=== PATIENT | female | born 1965 | race Two or more races ===

== ENCOUNTER 2024-11-27 13:00 | Outpatient (RCR) | payer MEDICAID, SELFPAY ==
--- NOTE | 2024-11-06 14:09 | PTNOTE_ITS ---
PT OP Initial Eval Patient Information Outpatient Physical Therapy Treatment Date: 11/06/24 Visit Reasons: Left lower leg injury Medical Diagnosis: [id number] Treatment Dx #1: L knee pain Start of Care: 11/06/24 Date of Onset: 05/2024 Smoking Status Smoking Status: Never smoker Initial Assessment Subjective: Pt is 59 yr old female who reports she slipped and fell at a grocery store on some water and the L knee hurts since then. Increased pain with prolonged walking >30 mins, getting OOB, squatting, stairs. The pain radiates from the knee up the lateral thigh. PMH: allergies Imaging: with provider Pt goal: to get rid of the knee pain to walk normal Objective: L knee AROM: Extension: full Flexion: 115 deg SLR: 55 deg Sayda's: positive Varus/valgus: positive gapping into both Trunk AROM: FB: 12 from floor with LBP TTP: L ITB high L hip abduction strength: 3-/5 Standing balance: poor with upper body movement when she moves the L LE after standing Assessment: Pt presents with L knee pain with most movements and special testing over the ITB. The L LE pain seems to be radiating from the knee up and not the low back down even though her back does hurt. Pt may benefit from skilled therapy to meet goals and has poor/fair rehab potential. Short Term and Custodial Goals 1. Ind with HEP 2. Decreased L ITB TTP from high to min 3. Improved ambulatory distance to at least 45 mins with min L knee pain Treatment Plan ? 1. Manual therapy ? 2. Therex ? 3. Modalities as indicated, moist heat, ice, estim Frequency and Duration: 1-2x a week for 3 trial visits then reassess. If improving continue up to 12 visits. Certification Dates: 11/06/24 to 02/05/25 Procedure Charges OP PT Eval Mod Complex 30 minutes: Yes
--- NOTE | 2024-11-13 16:20 | PT.ODAYNRPT ---
PT Outpatient Daily Note OP Daily Note Outpatient Physical Therapy Treatment Date: 11/13/24 Visit Reasons: Left lower leg injury Subjective: Same as time of evaluation Objective: See F/S for therex MHP: L knee x5' Assessment: Difficulty with partial body weight squatting on 35% body weight. Plan: Continue per POC Length of Time (minutes) of Treatment: 30 Minutes Procedure Charges Therapeutic Exercise 30 minutes: Yes
--- NOTE | 2024-11-20 13:50 | PT.ODAYNRPT ---
PT Outpatient Daily Note OP Daily Note Outpatient Physical Therapy Treatment Date: 11/20/24 Visit Reasons: Left lower leg injury Subjective: Pt c/o /10 knee pain and was really sore after last PT session. Objective: Please see flow sheet for ther ex list. Assessment: Pt demonstrates poor activity tolerance today due to aggravating symptoms with light activities. Plan: Continue with pOC. Length of Time (minutes) of Treatment: 30 Minutes Procedure Charges Therapeutic Exercise 30 minutes: Yes
--- NOTE | 2024-11-27 16:12 | PT.ODAYNRPT ---
PT Outpatient Daily Note OP Daily Note Outpatient Physical Therapy Treatment Date: 11/27/24 Visit Reasons: Left lower leg injury Subjective: Not much change, continued pain Objective: See F/S for therex MHP: L knee x5' Assessment: High tissue irritability with most therex Plan: Continue per POC Length of Time (minutes) of Treatment: 30 Minutes Procedure Charges Therapeutic Exercise 30 minutes: Yes
== END 2024-12-04 23:59 | disposition home or self-care (01) ==
LOC: CPTX 13:00
PROVIDERS: PCP Nurse Practitioner Family; Referring Provider Nurse Practitioner Family; Visit Provider Nurse Practitioner Family
DX: M25.562 Pain in left knee (principal); S89.92XD Unspecified injury of left lower leg, subsequent encounter; W01.0XXD Fall on same level from slipping, tripping and stumbling without subsequent striking against object, subsequent encounter
CPT/HCPCS: 97110; 97162

== ENCOUNTER 2024-12-02 09:22 | Emergency (ER) | payer MEDICAID, SELFPAY ==
[2024-12-02 09:39] VITALS: BP 88/56; PULSE 107; PULSE 94; RESP 16; TEMP 36.5; O2SAT 94; O2SAT 99; BMI 35.6
--- NOTE | 2024-12-02 09:57 | PC.NURSE ---
PT ARRIVED VIA EMS, ORIGINALLY THEY WRE CALLED FOR A CARDIAC ARREST, PTS FRIEND FOUND HER UNRESPONSIVE AND BEGAN CPR, WHEN EMS ARRIVED ON SCENE PT WAS ALERT, GCS 15, DOES HAVE EXTENSIVE PSYCH HX, RECEN CHANGE IN SEROQUEL. PT HAS BEEN SICK PAST FEW DAYS WITH FLU/COVID LIKE SYMPTOMS, FRIEND GAVE HER UNKNOWN PURPLE PAIN PILL, PRIOR TO HER BECOMING UNRESPONSIVE. PER PT SHE IS IS IN PHYSICAL THERAPY. AWAITING PROVIDER EVALUATION
--- NOTE | 2024-12-02 10:01 | EKG_ITS ---
[facility] Test Date: 2024-12-02 Pat Name: JERMAIN THACKER Department: Room: - Gender: Female Vehicle Check In Clerk: : [id number] Requested By: Radha Garland Order Number: [id number] Reading MD: Radha Garland Measurements Intervals [place] Rate: 93 P: 41 WY: 158 QRS: -31 QRSD: 89 T: 25 QT: 357 QTc: 444 Interpretive Statements SINUS RHYTHM LEFT AXIS DEVIATION [QRS AXIS < -30] PATTERN CONSISTENT WITH PULMONARY DISEASE Compared to ECG 07/09/2020 09:17:22 Left-axis deviation now present /store/S0/[id number]/ecg/[id number].pdf
--- NOTE | 2024-12-02 10:01 | XR_ITS ---
Examination: AP chest single view Technique: AP portable upright chest single view Exam date and time: December 02, 2024 1011 hrs. Comparison April 25, 2024 Indications: Shortness of breath chest pain beginning today. Findings: Opacity left base retrocardiac suspicious for early pneumonia Normal heart size No pulmonary edema Poor inspiratory effort Impression: Suspicious for early left base pneumonia, the appearance should be clinically correlated
--- NOTE | 2024-12-02 10:01 | XR_ITS ---
Examination: CT brain head without contrast. 2-D sagittal coronal reconstructions Date and time of exam:December 02, 2024, 10:19 AM Indications: Altered mental status and headaches vomiting beginning 3 days ago Comparison: December 04, 2019 CTDI: vol (mGy):51.6 DLP: (mGycm):1021 Technique: Multiple CT axial sections of the brain have been obtained, 5 mm slice thickness. Contrast has not been administered. 2-D sagittal, coronal reconstructions have been obtained Low dose protocols were performed. One or more of the following dose reduction techniques were used; automated exposure control, adjustment of the mA and/or KV according to patient size, use of iterative reconstruction technique. Findings: No significant ventricular enlargement. Intra-axial or extra-axial hemorrhage density is not seen. No mass effect or midline shift Basal cisterns are not remarkable. Fourth ventricle is midline. Cranial vault intact. Impression: Negative for acute hemorrhage, mass effect or midline shift If symptoms persist, as clinically warranted, consider brain MRI follow-up
--- NOTE | 2024-12-02 10:06 | EDNOTE_ITS ---
Altered Mental Status RME/HPI General Chief Complaint: Altered Mental Status Stated Complaint: AMS Arrival date/time: 12/02/24 09:22 RME / HPI RME / HPI narrative: DR. NICHOLS MAIN ED EVALUATION: 59 year old female with past medical history significant for depression and anxiety presents to the Emergency Department [facility] with complaint of altered mental status. EMS states they received the call as an unresponsive and possible cardiac arrest but when they arrived on scene, the patient was a GCS of 15 and talking. Patient has been sick for a couple of days with cold symptoms including a cough, congestion, subjective fevers, chills, and diarrhea. She states she has been taking Ibuprofen and yesterday she got Naproxen for the pain. PCP: [facility] Related Data Home Medications ?Medication ?Instructions ?Recorded ?Confirmed quetiapine 200 mg tablet,extended 200 mg PO QPM 07/09/20 release 24 hr (Seroquel XR) escitalopram oxalate 20 mg tablet 20 mg PO QDAY 07/09/20 (Lexapro) Previous Rx's ?Medication ?Instructions ?Recorded epinephrine 0.3 mg/0.3 mL 0.3 mg (0.3 mL) subcut PRN # 2 ea 10/22/19 injection, auto-injector clindamycin HCl 300 mg capsule 300 mg PO TID #21 caps 11/14/20 ibuprofen 800 mg tablet 800 mg PO TID PRN pain #30 t abs 11/14/20 Allergies Allergy/AdvReac Type Severity Reaction Status Date / Time coconut Allergy Severe Hives Verified 12/02/24 09:49 codeine Allergy Intermediate Gastrointestinal Verified 12/02/24 09:49 Upset Review of Systems Review of Systems Systems Reviewed: All systems reviewed, normal except as documented Past Medical History Past Medical History NEUROLOGIC: Positive Neurological Disorders, Migraine and Head Trauma CARDIAC: Positive Cardiac Disorders and Hypertension REPRODUCTIVE: Positive Breast Cancer MUSCULOSKELETAL: Positive Musculoskeletal Disorders and Arthritis ENT: Positive Blind and Head Trauma PSYCHO/SOCIAL: Positive Depression and Anxiety OTHER HISTORY: Positive Radiation Therapy, Chicken Pox and Breast Cancer Family History FAMILY HISTORY: Positive Family Cardiac Disorders Surgical History SURGICAL: Positive Abdominal Surgery, Hysterectomy and Tubal Ligation Social History SMOKING STATUS: Former smoker SUBSTANCE USE: does not use ALCOHOL: Never ED Exam Narrative Physical exam: GENERAL APPEARANCE: alert and oriented x 4, well-developed, well-nourished, no acute distress VITALS: All vitals were reviewed and the pulse ox is 99% on 3 L/min via a nasal cannula. HEENT: Normocephalic, atraumatic; pupils equal, round, reactive to light; right eye ptosis; EOMI; mucous membranes pink, moist; oropharynx clear NECK: Supple LUNGS: CTABL; no wheezes, no rales, no rhonchi HEART: Regular rate, regular rhythm; normal S1, S2; no murmurs ABDOMEN: non distended; normal BS; soft, no tenderness, no guarding, no rebound; no masses, no organomegaly, no hernia BACK: no CVA tenderness EXTREMITIES: atraumatic; no edema NEUROLOGIC: awake; alert and oriented x4; cranial nerves II-XII grossly intact; no focal sensory or motor deficits PSYCHIATRIC: appropriate mood and affect SKIN: warm, dry, normal color; no rashes Course Quality Measures none Orders Category Date Time Status Bedside COVID-19 Antigen Test NOW Care 12/02/24 10:03 Active Bedside Influenza A&B Antigen Test NOW Care 12/02/24 10:03 Completed Field Clinical Engineer NOW Care 12/02/24 10:01 Active EKG (ED ONLY) *Do not use* NOW Care 12/02/24 10:[address] head/brain wo con Stat Exams 12/02/24 10:01 Completed EKG (ED Only) Stat Exams 12/02/24 10:01 Draft XR chest 1V portable Stat Exams 12/02/24 10:01 Completed Alcohol, Blood Medical Stat Lab 12/02/24 10:10 Completed B-Type Natriuretic Peptide Stat Lab 12/02/24 10:10 Completed CBC Stat Lab 12/02/24 10:10 Completed Comprehensive Metabolic Panel Stat Lab 12/02/24 10:10 Completed Drug Screen,Urine Stat Lab 12/02/24 10:01 Ordered Lipase Stat Lab 12/02/24 10:10 Completed Magnesium Stat Lab 12/02/24 10:10 Completed Partial Thromboplastin Time Stat Lab 12/02/24 10:10 Completed Prothrombin Time with INR Stat Lab 12/02/24 10:10 Completed Troponin I Stat Lab 12/02/24 10:10 Completed Troponin I Stat Lab 12/02/24 12:30 Completed Vital Signs Vital signs: Vital Signs Temperature 97.7 F 12/02/24 09:39 Pulse Rate 94 12/02/24 09:39 Respiratory Rate 16 12/02/24 09:39 Blood Pressure 88/56 L 12/02/24 09:39 Pulse Oximetry (%) 99 12/02/24 09:39 Oxygen Delivery Method Nasal Cannula 12/02/24 09:39 Oxygen Flow Rate 2 12/02/24 09:39 Altered Mental Status MDM Narrative MDM Narrative:: I, Lexii Preciado am scribing for and in the presence of Dr. Nichols. Patient data External records reviewed:: EMS form Clinical information provided by:: patient, EMS and family Social determinants that could affect healthcare access:: mental health Patient has the following chronic illnesses:: depression and anxiety How is presenting disease/condition affected by chronic disease/condition?: uneffected by Evaluation data The following diagnostics were reviewed and interpreted by me:: lab results, radiology exam(s) and EKG tracing(s) (EKG#1: EKG at 1108 hours. Interpreted by me: sinus rhythm, rate 93, left axis deviation, no acute ischemic changes) Lab and/or radiology exams considered but not ordered:: none Interpretation Summary: Procedure(s): CT head/brain wo con Accession Number(s): [id number] cc: Christoph Escobar MD; Levon Strickland MD; Radha Nichols MD~ Examination: CT brain head without contrast. 2-D sagittal coronal reconstructions Date and time of exam:December 02, 2024, 10:19 AM Indications: Altered mental status and headaches vomiting beginning 3 days ago Comparison: December 04, 2019 CTDI: vol (mGy):51.6 DLP: (mGycm):1021 Technique: Multiple CT axial sections of the brain have been obtained, 5 mm slice thickness. Contrast has not been administered. 2-D sagittal, coronal reconstructions have been obtained Low dose protocols were performed. One or more of the following dose reduction techniques were used; automated exposure control, adjustment of the mA and/or KV according to patient size, use of iterative reconstruction technique. Findings: No significant ventricular enlargement. Intra-axial or extra-axial hemorrhage density is not seen. No mass effect or midline shift Basal cisterns are not remarkable. Fourth ventricle is midline. Cranial vault intact. Impression: Negative for acute hemorrhage, mass effect or midline shift If symptoms persist, as clinically warranted, consider brain MRI follow-up Dictated By: Levon Strickland MD Procedure(s): XR chest 1V portable Accession Number(s): [id number] cc: Christoph Escobar MD; Levon Strickland MD; Radha Nichols MD~ Examination: AP chest single view Technique: AP portable upright chest single view Exam date and time: December 02, 2024 1011 hrs. Comparison April 25, 2024 Indications: Shortness of breath chest pain beginning today. Findings: Opacity left base retrocardiac suspicious for early pneumonia Normal heart size No pulmonary edema Poor inspiratory effort Impression: Suspicious for early left base pneumonia, the appearance should be clinically correlated Dictated By: Levon Strickland MD Medications / Prescriptions Medications or Prescriptions considered but not ordered:: none Medication administrations:: see above if any Consultations Consultation(s) initiated? (list below): No Diagnosis Differential diagnosis altered mental status: alcoholic intoxication, altered mental status, hypoglycemia and subarachnoid hemorrhage Most likely diagnosis given after review of the tests above:: Influenza B Admission Indicated Admission indicated?: not indicated Admission Request Was there a request for admission?: No Disposition Plan Disposition Plan: Discharge Discharge Attestation Discharge Attestation: The patient and all family members were given an opportunity to ask questions and understood the discharge instructions. Discharge instructions specifically effects, indications for sooner follow up or return to the emergency department, and the expected course of current diagnosis. Patient condition: Stable Discharge Plan Plan Patient Disposition: HOME (Self Care) Prescriptions/Referrals Prescriptions/Med Rec: No Action escitalopram oxalate [Lexapro] 20 mg Tablet 20 mg PO QDAY epinephrine 0.3 mg/0.3 mL auto-injector 0.3 mg SC PRN Qty: 2 0RF quetiapine [Seroquel XR] 200 mg Tablet Extended Release 24 Hr 200 mg PO QPM clindamycin HCl 300 mg capsule 300 mg PO TID Qty: 21 0RF ibuprofen 800 mg tablet 800 mg PO TID PRN (Reason: pain) Qty: 30 0RF Referrals: Christoph Escobar MD [Primary Care Provider] - In 1 week Problem List Clinical Impression: Influenza B Patient/Caregiver Discharge Instructions Education Materials: ED Influenza (Adult) Print Language: Mongolian Stand Alone Forms: Neli Award Info., Patient Portal Info Letter
[2024-12-02 10:25] LABS: Basophils % (Auto) 0 % (0-2.5); Eosinophils % (Auto) 0 % (0-10); Hematocrit 41.1 % (36.0-46.0); Hemoglobin 13.7 g/dL (12.0-16.0); Immature Granulocytes % (Auto) 0 % (0-0); Immature Granulocytes Auto 0.02 Thou/mm3 (0.00-0.00); Lymphocytes # (Auto) 1.6 Thou/mm3 (1.0-4.8); Lymphocytes % (Auto) 20 % (10-50); Mean Corpuscular HGB Conc 33.3 g/dl (31.0-37.0); Mean Corpuscular Volume 90 fL (80-100); Monocytes # (Auto) 0.5 Thou/mm3 (0.0-0.8); Monocytes % (Auto) 6 % (0-12); Neutrophils # (Auto) 5.9 Thou/mm3 (1.8-7.7); Neutrophils % (Auto) 73 % (37-80); Nucleated Red Blood Cell % 0 /100 WBC (0); Platelet Count 171 Thou/mm3 (140-440); RDW Standard Deviation 40.9 fL (36.4-46.3); Red Blood Count 4.56 Miln/mm3 (4.00-5.20)
[2024-12-02 10:49] LABS: Alanine Aminotransferase 31 U/L (10-49); Albumin, Serum 3.9 gm/dL (3.5-5.0); Albumin/Globulin Ratio 1.1 (1.2-2.2); Alcohol, Blood Medical < 3.0 mg/dL (0-10.0); Alkaline Phosphatase 100 U/L (46-116); Anion Gap 7 (7-16); Aspartate Amino Transferase 37 U/L (0-34); BUN/Creatinine Ratio 13 Ratio (12-20); Bilirubin,Total 0.2 mg/dL (0.3-1.2); Blood Urea Nitrogen 15 mg/dL (9-23); Calcium (Corrected) 9.1 mg/dL (8.5-10.1); Carbon Dioxide 26.5 mMol/L (20.0-31.0); Chloride 104 mMol/L (98-107); Creatinine (Component) 1.2 mg/dL (0.6-1.3); Estimated Creatinine Clearance 57.6 mL/min (>60); Globulin 3.4 gm/dL (2.3-3.5); Glucose 115 mg/dL (74-106); Lipase 58 U/L (12-53); Magnesium 1.7 mg/dL (1.6-2.6); Osmolality,Calculated 275 (275-295); Potassium 3.6 mMol/L (3.4-5.1); Sodium 137 mMol/L (136-145); Total Protein 7.3 gm/dL (5.7-8.2); Troponin I < 0.002 ng/mL (0.0-0.045); eGFR 53 See Note
[2024-12-02 10:53] LABS: B-Type Natriuretic Peptide < 20 pg/mL (0-100)
[2024-12-02 11:00] VITALS: BP 115/65; PULSE 91; RESP 22; TEMP 36.7; O2SAT 99
[2024-12-02 11:02] LABS: Partial Thromboplastin Time 27.4 Seconds (22.0-36.0); Prothrombin Time 10.9 Seconds (9.0-12.2)
[2024-12-02 13:30] LABS: Troponin I < 0.002 ng/mL (0.0-0.045)
[2024-12-02 14:00] VITALS: BP 115/65; PULSE 96; RESP 19; TEMP 36.7; O2SAT 98
[2024-12-02] MEDS: HYDROcodone/APAP 5/325 TABLET 1 TAB PO (15:00)
== END 2024-12-02 15:12 | disposition home or self-care (01) ==
PROVIDERS: Emergency Provider Emergency Medicine; PCP Family Medicine
DX: J10.1 Influenza due to other identified influenza virus with other respiratory manifestations (principal); F32.A Depression, unspecified
CPT/HCPCS: 36415; 70450; 71045; 80053; 80307; 80320; 83690; 83735; 83880; 84484; 85025; 85610; 85730; 87400; 87811; 93005; 99284; A9270; G0480

== ENCOUNTER 2024-12-11 12:34 | Outpatient (RCR) | payer MEDICAID, SELFPAY ==
--- NOTE | 2024-12-11 13:29 | PT.ODAYNRPT ---
PT Outpatient Daily Note OP Daily Note Outpatient Physical Therapy Treatment Date: 12/11/24 Visit Reasons: Left leg injury Subjective: Pt reports L knee is still painful. Pt shared she has been really ill, that is why she has not made it to PT this last week. Objective: Please see flow sheet for ther ex list. Assessment: Pt demonstrates poor activity tolerance due to pain response. Plan: Continue with POc. Assess response to treatment. Length of Time (minutes) of Treatment: 30 Minutes Procedure Charges Therapeutic Exercise 30 minutes: Yes
--- NOTE | 2024-12-11 14:15 | PT.ODS1RPT ---
PT OP Progress/Discharge Note Date of Service: 12/11/24 Progress Note/DC Note Progress Note/Discharge Note: DC Note Patient Information Visit Reasons: Left leg injury Service Continue Service or Discharge: Discharge Status Subjective: Pt has been sick and hasn't been able to come to therapy until today. She reports little to no progress since starting therapy with continued L knee pain. Objective: Pt was treated by Anel Villalobos PTA today, see her daily note for details Reassessment by this PT L knee ArOM: Extension: full Flexion: 115 deg Strength: 3/5 TTP: moderate of L ITB Sayda's: positive Assessment: Pt attended the eval and 4 Rx sessions with limited progress with therapy goals due to continued L knee pain with high tissue irritability. Pt hasn't met goals and may benefit from further diagnostic imaging of L knee such as MRI. Plan: D/C
== END 2025-01-03 23:59 | disposition home or self-care (01) ==
LOC: CPTX 12:34
PROVIDERS: PCP Nurse Practitioner Family; Referring Provider Nurse Practitioner Family; Visit Provider Nurse Practitioner Family
DX: M25.562 Pain in left knee (principal); S89.92XD Unspecified injury of left lower leg, subsequent encounter; W01.0XXD Fall on same level from slipping, tripping and stumbling without subsequent striking against object, subsequent encounter
CPT/HCPCS: 97110